=== PATIENT | female | born 1960 | race African-American/Black ===

== ENCOUNTER → 2017-01-19 | Outpatient (CLI) | payer OTHER ==
[2017-01-19 08:53] LABS: CHOLESTEROL 254.01 mg/dL (0-200); Direct HDL 57 mg/dL (>40); TRIGLYCERIDES 66 mg/dL (<150)
[2017-01-19 09:03] LABS: DIRECT LDL 177 mg/dL (<100)
== END ==
LOC: CCC 08:15
DX: E11.9 Type 2 diabetes mellitus without complications (principal); I10 Essential (primary) hypertension; E78.2 Mixed hyperlipidemia
CPT/HCPCS: 36415; 80061; 83036; 84443

== ENCOUNTER 2017-02-09 12:02 | Emergency (ER) | payer OTHER ==
[2017-02-09] MEDS ORDERED: ASPIRIN 81 MG TABLET, CHEWABLE PO ONE (12:10)
--- NOTE | 2017-02-09 12:28 | ER Document Report ---
ED Medical Screen (RME) - General Stated Complaint: CHEST PAIN Notes: Patient states chest pain started yesterday. Her asthma flared up last night. Patient has a history of A. fib. She reports shortness of breath, dizziness, and lightheadedness. Denies nausea or vomiting. Patient took (4) 81 mg aspirin at home this morning. I have greeted and performed a rapid initial assessment of this patient. A comprehensive ED assessment and evaluation of the patient, analysis of test results and completion of the medical decision making process will be conducted by additional ED providers. TRAVEL OUTSIDE OF THE [place] IN LAST 30 DAYS: No - Related Data Allergies/Adverse Reactions: nitrofurantoin [From Macrobid] Allergy (Verified 07/11/15 22:26) increase heart rate nitrofurantoin macrocrystalline [From Macrobid] Allergy (Verified 07/11/15 22:26 ) increase heart rate Penicillins Allergy (Verified 07/11/15 22:26) rash theophylline [Theophylline] Allergy (Verified 07/11/15 22:26) increase heart rate justin Allergy (Severe, Uncoded 07/11/15 22:26) black mouth Past Medical History - Past Medical History Cardiac Medical History: Denies: Hx Coronary Artery Disease, Hx Heart Attack, Hx Hypertension Pulmonary Medical History: Reports: Hx Asthma - on inhalers Denies: Hx Bronchitis, Hx COPD, Hx Pneumonia, Hx Tuberculosis Neurological Medical History: Denies: Hx Cerebrovascular Accident, Hx Seizures Musculoskeltal Medical History: Reports Hx Arthritis - lbp Past Surgical History: Reports: Hx Section, Hx Gynecologic Surgery - endometreosis, Hx Tubal Ligation - Immunizations Immunizations up to date: No Hx Diphtheria, Pertussis, Tetanus Vaccination: Yes Physical Exam - Vital signs Vitals: Temp Pulse Resp BP Pulse Ox 98.4 F 57 L 24 H 149/85 H 97 02/09/17 12:02/09/17 12:02/09/17 12:02/09/17 12:02/09/17 12:17 - Cardiovascular Rhythm: Regular, Bradycardia Heart sounds: Normal auscultation Course - Vital Signs Vital signs: Temp Pulse Resp BP Pulse Ox 98.4 F 57 L 24 H 149/85 H 97 02/09/17 12:02/09/17 12:02/09/17 12:02/09/17 12:17 02/09/17 12:17
[2017-02-09 13:02] LABS: ABSOLUTE LYMPHOCYTES (AUTO) 2.5 10^3/uL (0.5-4.7); ABSOLUTE MONOCYTES (AUTO) 0.4 10^3/uL (0.1-1.4); ABSOLUTE NEUT (AUTO) 2.8 10^3/uL (1.7-8.2); BASOPHILS % (AUTO) 0.4 % (0-2); EOSINOPHILS % (AUTO) 0.6 % (0-6); HEMATOCRIT 37.1 % (36.0-47.0); HEMOGLOBIN 12.2 g/dL (12.0-15.5); HGB HCT DIFFERENCE -0.5; LYMPHOCYTES % (AUTO) 42.7 % (13-45); MEAN CORPUSCULAR HEMOGLOBIN 25.3 pg (27.0-33.4); MEAN CORPUSCULAR HGB CONC 32.9 g/dL (32.0-36.0); MEAN CORPUSCULAR VOLUME 77 fl (80-97); MONOCYTES % (AUTO) 7.8 % (3-13); RED BLOOD COUNT 4.82 10^6/uL (3.72-5.28); RED CELL DISTRIBUTION WIDTH 15.7 % (11.5-14.0); SEGMENTED NEUTROPHILS % (AUTO) 48.5 % (42-78); WHITE BLOOD COUNT 5.8 10^3/uL (4.0-10.5)
[2017-02-09 13:26] LABS: ALANINE AMINOTRANSFERASE 45 U/L (9-52); ALBUMIN 3.7 g/dL (3.5-5.0); ALKALINE PHOSPHATASE 76 U/L (38-126); ANION GAP 11 (5-19); ASPARTATE AMINO TRANSFERASE 38 U/L (14-36); BILIRUBIN,DIRECT 0.2 mg/dL (0.0-0.4); BILIRUBIN,TOTAL 0.3 mg/dL (0.2-1.3); BLOOD UREA NITROGEN 8 mg/dL (7-20); CALCIUM 9.3 mg/dL (8.4-10.2); CARBON DIOXIDE 27 mmol/L (22-30); CHLORIDE 105 mmol/L (98-107); CREATINE KINASE 144 U/L (30-135); CREATININE RESULT 0.67 mg/dL (0.52-1.25); GLUCOSE 128 mg/dL (75-110); POTASSIUM 4.1 mmol/L (3.6-5.0); SODIUM 143.1 mmol/L (137-145); TOTAL PROTEIN 6.2 g/dL (6.3-8.2)
[2017-02-09 13:33] LABS: CREATINE KINASE MB 2.47 ng/mL (<4.55)
[2017-02-09 13:35] LABS: TROPONIN I < 0.012 ng/mL
[2017-02-09] MEDS ORDERED: MECLIZINE HCL 25 MG TABLET PO ONE (19:28)
[2017-02-09] MEDS ORDERED: CLONIDINE HCL 0.1 MG TABLET PO ONE (19:28)
--- NOTE | 2017-02-09 19:31 | ER Document Report ---
ED General - General Chief Complaint: Chest Pain Stated Complaint: CHEST PAIN Time seen by provider: 19:29 Mode of Arrival: Ambulatory Information source: Patient TRAVEL OUTSIDE OF THE [place] IN LAST 30 DAYS: No - HPI Patient complains to provider of: dizziness, chest pain, difficulty breathing Onset: Yesterday Onset/Duration: Gradual Quality of pain: Achy Severity: Mild Pain Level: 1 Associated symptoms: Chest pain, Shortness of breath Exacerbated by: Movement Relieved by: Denies Notes: Patient is a 56-year-old female who presents to the emergency room complaining of dizziness and lightheadedness with chest pain that started yesterday, states the dizziness is the sensation of the room spinning, it is worsened with change of position going from sitting to standing, she reports a slight ache or mild pressure in her chest and reports today she had an asthma attack which caused her to have difficulty breathing, she denies any fever, no cough, cold or congestion, no nausea, vomiting or diarrhea - Related Data Allergies/Adverse Reactions: nitrofurantoin [From Macrobid] Allergy (Verified 07/11/15 22:26) increase heart rate nitrofurantoin macrocrystalline [From Macrobid] Allergy (Verified 07/11/15 22:26 ) increase heart rate Penicillins Allergy (Verified 07/11/15 22:26) rash theophylline [Theophylline] Allergy (Verified 07/11/15 22:26) increase heart rate justin Allergy (Severe, Uncoded 07/11/15 22:26) black mouth Past Medical History - General Information source: Patient - Social History Smoking Status: Unknown if Ever Smoked Chew tobacco use (# tins/day): No Frequency of alcohol use: None Drug Abuse: None Family History: CAD Patient has suicidal ideation: No Patient has homicidal ideation: No - Past Medical History Cardiac Medical History: Denies: Hx Coronary Artery Disease, Hx Heart Attack, Hx Hypertension Pulmonary Medical History: Reports: Hx Asthma - on inhalers Denies: Hx Bronchitis, Hx COPD, Hx Pneumonia, Hx Tuberculosis Neurological Medical History: Denies: Hx Cerebrovascular Accident, Hx Seizures Renal/ Medical History: Denies: Hx Peritoneal Dialysis Musculoskeltal Medical History: Reports Hx Arthritis - lbp Past Surgical History: Reports: Hx Section, Hx Gynecologic Surgery - endometreosis, Hx Tubal Ligation - Immunizations Immunizations up to date: No Hx Diphtheria, Pertussis, Tetanus Vaccination: Yes Hx Pneumococcal Vaccination: 05/16/14 Review of Systems - Review of Systems Constitutional: No symptoms reported EENT: No symptoms reported Cardiovascular: See HPI Respiratory: See HPI Gastrointestinal: No symptoms reported Genitourinary: No symptoms reported Female Genitourinary: No symptoms reported Musculoskeletal: No symptoms reported Skin: No symptoms reported Hematologic/Lymphatic: No symptoms reported Neurological/Psychological: No symptoms reported -: Yes All other systems reviewed and negative Physical Exam - Vital signs Vitals: Temp Pulse Resp BP Pulse Ox 98.4 F 57 L 24 H 149/85 H 97 02/09/17 12:17 02/09/17 12:17 02/09/17 12:17 02/09/17 12:17 02/09/17 12:17 Interpretation: Normal - General General appearance: Appears well, Alert - HEENT Head: Normocephalic, Atraumatic Eyes: Normal Pupils: PERRL - Respiratory Respiratory status: No respiratory distress Chest status: Nontender Breath sounds: Normal Chest palpation: Normal - Cardiovascular Rhythm: Regular Heart sounds: Normal auscultation Murmur: Yes Systolic murmur grade 1-6: 3 - Abdominal Inspection: Normal Distension: No distension Bowel sounds: Normal Tenderness: Nontender Organomegaly: No organomegaly - Back Back: Normal, Nontender - Extremities General upper extremity: Normal inspection, Nontender, Normal color, Normal ROM , Normal temperature General lower extremity: Normal inspection, Nontender, Normal color, Normal ROM , Normal temperature, Normal weight bearing. No: Mau's sign - Neurological Neuro grossly intact: Yes Cognition: Normal Orientation: AAOx4 Enoch Coma Scale Eye Opening: Spontaneous [place] Coma Scale Verbal: Oriented [place] Coma Scale Motor: Obeys Commands [place] Coma Scale Total: 15 Speech: Normal Motor strength normal: LUE, RUE, LLE, RLE Sensory: Normal - Psychological Associated symptoms: Normal affect, Normal mood - Skin Skin Temperature: Warm Skin Moisture: Dry Skin Color: Normal Course - Re-evaluation Re-evalutation: 02/09/17 20:28 Patient resting comfortably, eating peanut butter and crackers, reports symptoms are resolved, she will be discharged with a prescription for meclizine and advised to follow-up with her primary care provider in the next 2-3 days or return if symptoms worsen, patient acknowledges understanding and agreement with this plan - Vital Signs Vital signs: Temp Pulse Resp BP Pulse Ox 98.4 F 57 L 24 H 164/95 H 100 02/09/17 12:17 02/09/17 12:17 02/09/17 12:17 02/09/17 19:31 02/09/17 19:31 - Laboratory Result Diagrams: 02/09/17 12:30 02/09/17 12:30 Laboratory results interpreted by me: 02/09/17 02/09/17 12:30 12:30 MCV 77 L MCH 25.3 L RDW 15.7 H Glucose 128 H AST 38 H Creatine Kinase 144 H Total Protein 6.2 L - Diagnostic Test Radiology reviewed: Image reviewed, Reports reviewed - EKG Interpretation by Me EKG shows normal: Sinus rhythm Rate: Bradycardia Discharge - Discharge Clinical Impression: Vertigo Chest pain Qualifiers: Chest pain type: unspecified Qualified Code(s): R07.9 - Chest pain, unspecified Condition: Stable Disposition: HOME, SELF-CARE Instructions: Chest Pain of Unclear Cause ([facility]), Vertigo ([facility]) Additional Instructions: Follow up with your primary care provider in one to 2 days. Return to the emergency room immediately if symptoms worsen or any additional concerns. Prescriptions: Meclizine HCl [Antivert 25 mg Tablet] 25 mg PO TID #20 tablet
--- NOTE | 2017-02-09 20:22 | EKG REPORT ---
SEVERITY:- ABNORMAL ECG - SINUS RHYTHM AINSLEY, CONSIDER BIATRIAL ABNORMALITIES : Confirmed by: Thompson Perry 09-Feb-2017 20:21:42
[2017-02-09 20:38] VITALS: BP 124/88
== END 2017-02-09 20:41 | disposition home or self-care (01) ==
LOC: ER 12:02
DX: R42 Dizziness and giddiness (principal); R07.9 Chest pain, unspecified
CPT/HCPCS: 36415; 71010; 80053; 82550; 82553; 84484; 85025; 93005; 93010; 99285

== ENCOUNTER 2017-02-10 11:19 | Emergency (ER) | payer OTHER ==
[2017-02-10] MEDS ORDERED: ADENOSINE INJ/PF 6 MG/2 ML SDV IV ONE (11:34)
--- NOTE | 2017-02-10 12:03 | ER Document Report ---
ED General - General Stated Complaint: CHEST PAIN Mode of Arrival: Ambulatory Information source: Patient Notes: 56-year-old female who was seen yesterday for chest pain presents with continued chest pain, sob and now heart racing. pt notes she has had heart racing in the past, has had to do vagal manuevers and take medications before. denies any fevers or chills, nausea or vomiting TRAVEL OUTSIDE OF THE [place] IN LAST 30 DAYS: No - HPI Onset: Just prior to arrival Onset/Duration: Sudden Quality of pain: No pain Severity: Mild Pain Level: 1 Associated symptoms: Chest pain Exacerbated by: Denies Relieved by: Denies Similar symptoms previously: Yes Recently seen / treated by doctor: Yes - Related Data Allergies/Adverse Reactions: nitrofurantoin [From Macrobid] Allergy (Verified 07/11/15 22:26) increase heart rate nitrofurantoin macrocrystalline [From Macrobid] Allergy (Verified 07/11/15 22:26 ) increase heart rate Penicillins Allergy (Verified 07/11/15 22:26) rash theophylline [Theophylline] Allergy (Verified 07/11/15 22:26) increase heart rate justin Allergy (Severe, Uncoded 07/11/15 22:26) black mouth Past Medical History - Social History Smoking Status: Never Smoker Cigarette use (# per day): No Chew tobacco use (# tins/day): No Smoking Education Provided: No Family History: CAD - Past Medical History Cardiac Medical History: Denies: Hx Coronary Artery Disease, Hx Heart Attack, Hx Hypertension Pulmonary Medical History: Reports: Hx Asthma - on inhalers Denies: Hx Bronchitis, Hx COPD, Hx Pneumonia, Hx Tuberculosis Neurological Medical History: Denies: Hx Cerebrovascular Accident, Hx Seizures Renal/ Medical History: Denies: Hx Peritoneal Dialysis Musculoskeltal Medical History: Reports Hx Arthritis - lbp Past Surgical History: Reports: Hx Section, Hx Gynecologic Surgery - endometreosis, Hx Tubal Ligation - Immunizations Immunizations up to date: No Hx Diphtheria, Pertussis, Tetanus Vaccination: Yes Hx Pneumococcal Vaccination: 05/16/14 Review of Systems - Review of Systems Notes: REVIEW OF SYSTEMS: CONSTITUTIONAL : Denies fever, chills, or sweats. Denies recent illness. EENT: Denies eye, ear, throat, or mouth pain or symptoms. Denies nasal or sinus congestion or discharge. Denies throat, tongue, or mouth swelling or difficulty swallowing. CARDIOVASCULAR: Admits chest pain shortness breath or racing RESPIRATORY: Denies cough, cold, or chest congestion. Denies shortness of breath, difficulty breathing, or wheezing. GASTROINTESTINAL: Denies abdominal pain or distention. Denies nausea, vomiting , or diarrhea. Denies blood in vomitus, stools, or per rectum. Denies black, tarry stools. Denies constipation. GENITOURINARY: Denies difficulty urinating, painful urination, burning, frequency, blood in urine, or discharge. FEMALE GENITOURINARY: Denies vaginal bleeding, heavy or abnormal periods, irregular periods. Denies vaginal discharge or odor. MUSCULOSKELETAL: Denies back or neck pain or stiffness. Denies joint pain or swelling. SKIN: Denies rash, lesions or sores. HEMATOLOGIC : Denies easy bruising or bleeding. LYMPHATIC: Denies swollen, enlarged glands. NEUROLOGICAL: Denies confusion or altered mental status. Denies passing out or loss of consciousness. Denies dizziness or lightheadedness. Denies headache. Denies weakness or paralysis or loss of use of either side. Denies problems with gait or speech. Denies sensory loss, numbness, or tingling. Denies seizures. PSYCHIATRIC: Denies anxiety or stress. Denies depression, suicidal ideation, or homicidal ideation. ALL OTHER SYSTEMS REVIEWED AND NEGATIVE. Dictation was performed using [employer] voice recognition software PHYSICAL EXAMINATION: GENERAL: Well-appearing, well-nourished and in no acute distress. HEAD: Atraumatic, normocephalic. EYES: Pupils equal round and reactive to light, extraocular movements intact, conjunctiva are normal. ENT: Nares patent, oropharynx clear without exudates. Moist mucous membranes. NECK: Normal range of motion, supple without lymphadenopathy LUNGS: Breath sounds clear to auscultation bilaterally and equal. No wheezes rales or rhonchi. HEART: Patient in SVT ABDOMEN: Soft, nontender, nondistended abdomen. No guarding, no rebound. No masses appreciated. Female : deferred Musculoskeletal: Normal range of motion, no pitting or edema. No cyanosis. NEUROLOGICAL: Cranial nerves grossly intact. Normal speech, normal gait. Normal sensory, motor exams PSYCH: Normal mood, normal affect. SKIN: Warm, Dry, normal turgor, no rashes or lesions noted. Physical Exam - Vital signs Vitals: Temp Pulse Resp BP Pulse Ox 98.2 F 164 H 16 127/106 H 97 02/10/17 11:33 02/10/17 11:33 02/10/17 11:33 02/10/17 11:33 02/10/17 11:33 Course - Re-evaluation Re-evalutation: 02/10/17 11:50 vagal maneuver unsuccessful patient given adenosine with resolution 02/10/17 14:18 Patient has been watched in the emergency department she is been stable, wishes to go home. Patient given that she has had now 6 episodes throughout her lifetime do not expect any specific life-threatening issues Patient has had multiple sets of enzymes over the past 24 hours, I will discharge home at this time After performing a Medical Screening Examination, I estimate there is LOW risk for RUPTURED ESOPHAGUS, PNEUMOTHORAX, PULMONARY EMBOLISM, ACUTE CORONARY SYNDROME, OR THORACIC AORTIC DISSECTION, thus I consider the discharge disposition reasonable. The patient and I have discussed the diagnosis and risks , and we agree with discharging home with close follow-up. We also discussed returning to the Emergency Department immediately if new or worsening symptoms occur. We have discussed the symptoms which are most concerning (e.g., bloody sputum, worsening pain or shortness of breath) that necessitate immediate return. - Vital Signs Vital signs: Temp Pulse Resp BP Pulse Ox 98.2 F 164 H 23 H 107/87 H 100 02/10/17 11:33 02/10/17 11:33 02/10/17 13:02 02/10/17 13:01 02/10/17 13:02 - Laboratory Result Diagrams: 02/10/17 13:18 02/10/17 11:40 Laboratory results interpreted by me: 02/10/17 02/10/17 11:40 13:18 MCV 77 L MCH 25.3 L RDW 15.6 H Lymphocytes % 49.5 H Glucose 138 H Total Protein 6.2 L - Diagnostic Test Radiology reviewed: Image reviewed, Reports reviewed - EKG Interpretation by Me EKG shows normal: Sinus rhythm, [place], Intervals, QRS Complexes Critical Care Note - Critical Care Note Total time excluding time spent on procedures (mins): 32 Comments: 32 minutes of critical care time spent in direct contact evaluating and reevaluating the patient, treating symptoms, reviewing labs and studies and speaking with family and consultants excluding any procedures Discharge - Discharge Clinical Impression: SVT (supraventricular tachycardia) Condition: Stable Disposition: HOME, SELF-CARE Instructions: Paroxysmal Supraventricular Tachycardia ([facility]) Additional Instructions: You promised that you would see a bilingual patient support caseworker, return immediately if there are any other concerns Referrals: JAH YE MD [ACTIVE STAFF] - Follow up tomorrow
[2017-02-10 12:18] LABS: ALANINE AMINOTRANSFERASE 47 U/L (9-52); ALBUMIN 3.7 g/dL (3.5-5.0); ALKALINE PHOSPHATASE 86 U/L (38-126); ANION GAP 10 (5-19); ASPARTATE AMINO TRANSFERASE 32 U/L (14-36); BILIRUBIN,DIRECT 0.1 mg/dL (0.0-0.4); BILIRUBIN,TOTAL 0.4 mg/dL (0.2-1.3); BLOOD UREA NITROGEN 11 mg/dL (7-20); CALCIUM 9.6 mg/dL (8.4-10.2); CARBON DIOXIDE 29 mmol/L (22-30); CHLORIDE 105 mmol/L (98-107); CREATININE RESULT 0.85 mg/dL (0.52-1.25); GLUCOSE 138 mg/dL (75-110); LIPASE 246.3 U/L (23-300); SODIUM 143.7 mmol/L (137-145); TOTAL PROTEIN 6.2 g/dL (6.3-8.2)
[2017-02-10 12:31] LABS: CREATINE KINASE MB 1.68 ng/mL (<4.55); TROPONIN I < 0.012 ng/mL
[2017-02-10 13:28] LABS: ABSOLUTE LYMPHOCYTES (AUTO) 2.8 10^3/uL (0.5-4.7); ABSOLUTE MONOCYTES (AUTO) 0.4 10^3/uL (0.1-1.4); ABSOLUTE NEUT (AUTO) 2.4 10^3/uL (1.7-8.2); BASOPHILS % (AUTO) 0.5 % (0-2); EOSINOPHILS % (AUTO) 0.9 % (0-6); HEMATOCRIT 40.3 % (36.0-47.0); HEMOGLOBIN 13.3 g/dL (12.0-15.5); HGB HCT DIFFERENCE -0.4; LYMPHOCYTES % (AUTO) 49.5 % (13-45); MEAN CORPUSCULAR HEMOGLOBIN 25.3 pg (27.0-33.4); MEAN CORPUSCULAR VOLUME 77 fl (80-97); MONOCYTES % (AUTO) 6.8 % (3-13); RED BLOOD COUNT 5.27 10^6/uL (3.72-5.28); RED CELL DISTRIBUTION WIDTH 15.6 % (11.5-14.0); SEGMENTED NEUTROPHILS % (AUTO) 42.3 % (42-78); WHITE BLOOD COUNT 5.7 10^3/uL (4.0-10.5)
--- NOTE | 2017-02-10 14:42 | EKG REPORT ---
SEVERITY:- ABNORMAL ECG - SINUS RHYTHM LEFT ATRIAL ABNORMALITY : Confirmed by: Thompson Perry 10-Feb-2017 14:41:38
[2017-02-10 15:48] VITALS: BP 108/80
== END 2017-02-10 15:47 | disposition home or self-care (01) ==
LOC: ER 11:19
DX: I47.1 Supraventricular tachycardia (principal); R07.9 Chest pain, unspecified; Z88.1 Allergy status to other antibiotic agents; Z88.0 Allergy status to penicillin; Z91.013 Allergy to seafood; Z88.8 Allergy status to other drugs, medicaments and biological substances
CPT/HCPCS: 93005; 99291; 36415; 82553; 83690; 85025; 80053; 84484; 71020; 93010; J0153

== ENCOUNTER → 2017-03-25 | Outpatient (CLI) | payer OTHER ==
[2017-03-25 13:11] LABS: THYROID STIMULATING HORMONE 0.7 uIU/mL (0.47-4.68)
== END ==
LOC: CCC 11:49
DX: R00.0 Tachycardia, unspecified (principal); E11.9 Type 2 diabetes mellitus without complications
CPT/HCPCS: 36415; 83036; 84439; 84443

== ENCOUNTER 2017-04-08 07:06 | Outpatient (CLI) | payer OTHER ==
--- NOTE | 2017-04-08 20:03 | XCELERA REPORT ---
[address] [address] Transthoracic Echocardiogram Report Name: SHAHAB ESPINO Age: 56 yrs Gender: Female : 1960 Patient Status: Outpatient Patient Location: [facility] Study Date: 04/08/2017 07:51 AM Height: 65 in Weight: 202 lb BSA: 2.0 m2 Reason For Study: HTN Ordering Physician: [facility] Performed By: Edenilson Garces Interpretation Summary Asymmetric septal hypertrophy of LV with normal LVEF 65-70%, no LV diastolic dysfunction. No regional wall motion abnormality. Normal AV no no AR. Mild Mitral annular calcification. Mild MR with no MS, no LA enlargement. Mild TR with mild pulm hypertension RVSP 35mm Hg, no RA or RV enlargement. asymmetric septal hypertrophy 13mm PW 9.4mm MMode/2D Measurements \T\ Calculations RVDd: 2.7 cm LVIDd: 4.6 cm FS: 47.7 % Ao root diam: 2.9 cm IVSd: 1.1 cm LVIDs: 2.4 cm EDV(Teich): 99.1 ml LVPWd: 1.0 cm ESV(Teich): 20.6 ml Ao root area: 6.6 cm2 EF(Teich): 79.2 % LA dimension: 3.5 cm Doppler Measurements \T\ Calculations MV E max yonatan: MV P1/2t max yonatan: Ao V2 max: LV V1 max P.2 cm/sec 96.7 cm/sec 145.8 cm/sec 4.0 mmHg MV A max yonatan: MV P1/2t: 51.3 msec Ao max PG: LV V1 max: 83.9 cm/sec 8.5 mmHg 100.4 cm/sec MV E/A: 1.2 MVA(P1/2t): 4.3 cm2 MV dec slope: 552.1 cm/sec2 PA V2 max: PI end-d yonatan: TR max yonatan: RAP systole: 78.5 cm/sec 139.8 cm/sec 248.0 cm/sec 10.0 mmHg PA max PG: TR max P.5 mmHg 24.7 mmHg RVSP(TR): 34.7 mmHg Left Ventricle The left ventricle is normal in size. There is mild asymmetric left ventricular hypertrophy. The left ventricular ejection fraction is normal. Doppler measurements suggest normal left ventricular diastolic function. No regional wall motion abnormalities noted. There is no thrombus. Right Ventricle The right ventricle is normal in size, thickness and function. Atria Right atrium not well visualized secondary to technical limitations. The left atrial size is normal. The interatrial septum is intact with no evidence for an atrial septal defect. Mitral Valve The mitral valve is normal in structure and function. There is mild mitral leaflet calcification. There is no evidence of mitral valve prolapse. There is no mitral valve stenosis. There is a mild amount of mitral regurgitation. Aortic Valve The aortic valve is sclerotic and shows some degree of functional abnormality. The aortic valve opens well. The aortic valve is trileaflet. There is no aortic valvular vegetation. There is no aortic valve stenosis. No aortic regurgitation is present. Tricuspid Valve The tricuspid is normal in structure and function. There is no tricuspid valve prolapse. There is no tricuspid stenosis. There is a mild amount of tricuspid regurgitation. Right ventricular systolic pressure is estimated to be elevated at 30-40mmHg. Great Vessels The aortic root is normal size. Effusions Minimal pericardial effusion. I WMSI = 1.00 % Normal = 100 Segments Size X - Cannot 2 - 4 - 1-2 small Interpret 1 - Normal Hypokinetic 3 - AkineticDyskinetic 3-5 moderate 5 - 6-14 large Aneurysmal 15-16 diffuse : [facility] > [place]
--- NOTE | 2017-04-14 08:07 | NONINVASIVE CARDIOLOGY REPORT ---
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 REPORT The basic rhythm was sinus with heart rate ranging from 50 bpm at 4:29 am to 120 bpm at 10:05 pm. No diary returned for correlation with activity. PACs were rare, no more than five this entire 24 hours, with no paroxysmal atrial tachycardia or paroxysmal atrial fibrillation. PVCs were rare, ranging from zero to 13 per hour, no diary returned to see if patient was symptomatic or not. There was no nonsustained ventricular tachycardia. SUMMARY OR FINDINGS: 1. NO PAROXYSMAL OR VENTRICULAR TACHYCARDIA SEEN THIS ENTIRE 24 HOURS. 2. RARE PACs. 3. RARE PVCs. INTERPRETING PHYSICIAN: MIRIAM GRECO M.D. /: BILL TT: [id number] ID: [id number] /: [id number] TD: 1944 JOB: [id number] cc:MIRIAM GRECO M.D. [facility],
== END 2017-04-09 23:59 | disposition home or self-care (01) ==
LOC: CCC 07:06 → SP 07:06 → EDSTATUS 08:00 → CCC 04-09 14:22
DX: I47.1 Supraventricular tachycardia (principal); I10 Essential (primary) hypertension; E11.9 Type 2 diabetes mellitus without complications
CPT/HCPCS: 93225; 93226; 93306

== ENCOUNTER → 2017-05-26 | Outpatient (CLI) | payer OTHER ==
[2017-05-26 14:05] LABS: ANION GAP 10 (5-19); BLOOD UREA NITROGEN 11 mg/dL (7-20); CALCIUM 10.4 mg/dL (8.4-10.2); CARBON DIOXIDE 30 mmol/L (22-30); CHLORIDE 102 mmol/L (98-107); CREATININE RESULT 0.71 mg/dL (0.52-1.25); GLUCOSE 108 mg/dL (75-110); POTASSIUM 4.3 mmol/L (3.6-5.0); SODIUM 141.6 mmol/L (137-145)
== END ==
LOC: CCC 12:33
DX: E11.8 Type 2 diabetes mellitus with unspecified complications (principal)
CPT/HCPCS: 36415; 80048

== ENCOUNTER → 2017-06-10 | Outpatient (CLI) | payer OTHER ==
--- NOTE | 2017-06-10 11:50 | RADIOLOGY REPORT (SQ) ---
EXAM DESCRIPTION: MRI HEAD COMBO COMPLETED DATE/TIME: 06/10/2017 9:52 am REASON FOR STUDY: DECREASE IN MOTOR STRENGTH M62.81 MUSCLE WEAKNESS (GENERALIZED) R60.0 LOCALIZED EDEMA R26.89 OTHER ABNORMALITIES OF GAIT AND MOBILITY COMPARISON: None. TECHNIQUE: Multiplanar imaging includes noncontrasted T1, T2, FLAIR, diffusion with ADC map and post gadolinium contrast T1 sequences. Images stored on PACS. CONTRAST TYPE AND DOSE: 20 mL Multihance. RENAL FUNCTION: GFR > 60. LIMITATIONS: None. FINDINGS: ANATOMY: No anomalies. Normal vascular flow voids. Pituitary fossa normal. CSF SPACES: Normal in size and contour. No hemorrhage. CEREBRUM: Sulci and gyri normal in size and contour. No evidence of hemorrhage, mass, or extraaxial fluid collection. No abnormal enhancement post contrast. POSTERIOR FOSSA: No signal alteration. No hemorrhage. No edema, masses, or mass effect. Internal nieves tory canals, cerebellopontine angles, mastoids normal. No enhancing lesions. No abnormal enhancement post contrast. DIFFUSION IMAGING: Negative for acute or subacute infarction. ORBITS: No masses. Globes normal. PARANASAL SINUSES: No fluid levels. Mucosa normal. OTHER: No other significant finding. IMPRESSION: No acute abnormality in the brain. EVIDENCE OF ACUTE STROKE: NO. TECHNICAL DOCUMENTATION: JOB ID: [id number] [employer]- All Rights Reserved
== END ==
LOC: RAD 08:14
DX: M62.81 Muscle weakness (generalized) (principal); R60.0 Localized edema; R26.89 Other abnormalities of gait and mobility
CPT/HCPCS: 70553; A9577

== ENCOUNTER → 2017-07-13 | Outpatient (CLI) | payer OTHER ==
[2017-07-13 11:27] LABS: ANION GAP 9 (5-19); BLOOD UREA NITROGEN 10 mg/dL (7-20); CALCIUM 9.6 mg/dL (8.4-10.2); CARBON DIOXIDE 27 mmol/L (22-30); CHLORIDE 105 mmol/L (98-107); CREATININE RESULT 0.57 mg/dL (0.52-1.25); GLUCOSE 167 mg/dL (75-110); MAGNESIUM 1.9 mg/dL (1.6-2.3); PHOSPHORUS 3.4 mg/dL (2.5-4.5); SODIUM 141.1 mmol/L (137-145)
[2017-07-13 12:41] LABS: FOLATE > 20.00 ng/mL (>2.76)
== END ==
LOC: CCC 10:09
DX: I27.0 Primary pulmonary hypertension (principal); E83.52 Hypercalcemia
CPT/HCPCS: 36415; 80048; 82607; 82746; 83036; 83735; 84100

== ENCOUNTER 2017-11-25 09:26 | Emergency (ER) | payer MEDICAID ==
[2017-11-25 10:17] LABS: ABSOLUTE BASOPHILS # (AUTO) 0.1 10^3/uL (0.0-0.2); ABSOLUTE EOSINOPHILS # (AUTO) 0.1 10^3/uL (0.0-0.6); ABSOLUTE LYMPHOCYTES (AUTO) 3.8 10^3/uL (0.5-4.7); ABSOLUTE MONOCYTES (AUTO) 0.5 10^3/uL (0.1-1.4); ABSOLUTE NEUT (AUTO) 2.3 10^3/uL (1.7-8.2); BASOPHILS % (AUTO) 0.8 % (0-2); EOSINOPHILS % (AUTO) 1.3 % (0-6); HEMATOCRIT 40.2 % (36.0-47.0); HEMOGLOBIN 13.5 g/dL (12.0-15.5); LYMPHOCYTES % (AUTO) 56.3 % (13-45); MEAN CORPUSCULAR HEMOGLOBIN 25.7 pg (27.0-33.4); MEAN CORPUSCULAR HGB CONC 33.5 g/dL (32.0-36.0); MEAN CORPUSCULAR VOLUME 77 fl (80-97); MONOCYTES % (AUTO) 7.9 % (3-13); PLATELET COUNT 443 10^3/uL (150-450); RED BLOOD COUNT 5.25 10^6/uL (3.72-5.28); RED CELL DISTRIBUTION WIDTH 15.3 % (11.5-14.0); SEGMENTED NEUTROPHILS % (AUTO) 33.7 % (42-78); TOTAL CELLS COUNTED % (AUTO) 100 %; WHITE BLOOD COUNT 6.8 10^3/uL (4.0-10.5)
--- NOTE | 2017-11-25 10:17 | ER Document Report ---
ED Cardiac - General Chief Complaint: Chest Pain Stated Complaint: CHEST PAIN Time Seen by Provider: 11/25/17 10:06 Notes: The patient is a 57-year-old female, past medical history SVT (on atenolol), hypertension, presents after she felt her heart racing for about 30 minutes. As the patient was being rolled from the EKG room to her room, she felt her heart start racing. In the past, she has required adenosine to break her SVT. On my evaluation, the patient is in normal sinus rhythm with a rate of 60. She is feeling mild chest pressure during the SVT, but this has resolved. She has an appointment with her javascript programmer in [place], Dr. Wolfe, and 4 days. She did not take her atenolol this morning. She denies shortness of breath, syncope , leg swelling, hemoptysis, fevers, cough, nausea, vomiting, abdominal pain or back pain. TRAVEL OUTSIDE OF THE [place] IN LAST 30 DAYS: No - Related Data Allergies/Adverse Reactions: nitrofurantoin [From Macrobid] Allergy (Verified 11/25/17 09:26) increase heart rate nitrofurantoin macrocrystalline [From Macrobid] Allergy (Verified 11/25/17 09:26 ) increase heart rate Penicillins Allergy (Verified 11/25/17 09:26) rash theophylline [Theophylline] Allergy (Verified 11/25/17 09:26) increase heart rate justin Allergy (Severe, Uncoded 11/25/17 09:26) black mouth Past Medical History - General Information source: Patient - Social History Smoking Status: Unknown if Ever Smoked Family History: CAD - Past Medical History Cardiac Medical History: Denies: Hx Coronary Artery Disease, Hx Heart Attack, Hx Hypertension Pulmonary Medical History: Reports: Hx Asthma - on inhalers Denies: Hx Bronchitis, Hx COPD, Hx Pneumonia, Hx Tuberculosis Neurological Medical History: Denies: Hx Cerebrovascular Accident, Hx Seizures Renal/ Medical History: Denies: Hx Peritoneal Dialysis Musculoskeltal Medical History: Reports Hx Arthritis - lbp Past Surgical History: Reports: Hx Section, Hx Gynecologic Surgery - endometreosis, Hx Tubal Ligation - Immunizations Immunizations up to date: No Hx Diphtheria, Pertussis, Tetanus Vaccination: Yes Hx Pneumococcal Vaccination: 05/16/14 Review of Systems - Review of Systems Notes: REVIEW OF SYSTEMS: CONSTITUTIONAL: -fevers, -chills EENT: -eye pain, -difficulty swallowing, -nasal congestion CARDIOVASCULAR: -chest pain, -syncope, +palpitations RESPIRATORY: -cough, -SOB GASTROINTESTINAL: -abdominal pain, -nausea, -vomiting, -diarrhea GENITOURINARY: -dysuria, -hematuria MUSCULOSKELETAL: -back pain, -neck pain SKIN: -rash or skin lesions. HEMATOLOGIC: -easy bruising or bleeding. LYMPHATIC: -swollen, enlarged glands. NEUROLOGICAL: -altered mental status or loss of consciousness, -headache, - neurologic symptoms PSYCHIATRIC: -anxiety, -depression. ALL OTHER SYSTEMS REVIEWED AND NEGATIVE. Physical Exam - Vital signs Vitals: Temp 97.8 F 11/25/17 09:46 - Notes Notes: PHYSICAL EXAMINATION: GENERAL: Well-appearing, well-nourished and in no acute distress. HEAD: Atraumatic, normocephalic. EYES: Pupils equal round and reactive to light, extraocular movements intact, sclera anicteric, conjunctiva are normal. ENT: nares patent, oropharynx clear without exudates. Moist mucous membranes. NECK: Normal range of motion, supple without lymphadenopathy LUNGS: Breath sounds clear to auscultation bilaterally and equal. No wheezes rales or rhonchi. HEART: Regular rate and rhythm without murmurs ABDOMEN: Soft, nontender, normoactive bowel sounds. No guarding, no rebound. No masses appreciated. EXTREMITIES: Normal range of motion, no pitting or edema. No cyanosis. NEUROLOGICAL: Cranial nerves grossly intact. Normal speech, normal gait. Normal sensory and motor exams. PSYCH: Normal mood, normal affect. SKIN: Warm, Dry, normal turgor, no rashes or lesions noted. Course - Re-evaluation Re-evalutation: Patient's SVT spontaneously converted while she was trying vagal maneuvers on the way back to her room. Pt cannot remember her atenolol dose, but says she will take it right when she gets home. She has an appointment with her javascript programmer in 4 days. Blood work is unremarkable and instructed her to follow -up with the javascript programmer as already instructed. Given very strict return precautions and she understands. - Vital Signs Vital signs: Temp Pulse Resp BP Pulse Ox 97.8 F 75 11/25/17 09:46 11/25/17 09:59 - Laboratory Result Diagrams: 11/25/17 09:40 11/25/17 09:40 Laboratory results interpreted by me: 11/25/17 11/25/17 09:40 09:40 MCV 77 L MCH 25.7 L RDW 15.3 H Seg Neutrophils % 33.7 L Lymphocytes % 56.3 H Glucose 251 H Calcium 10.4 H Alkaline Phosphatase 127 H - Diagnostic Test Radiology reviewed: Image reviewed, Reports reviewed - EKG Interpretation by Me EKG shows normal: [place] Rate: Tachycardia Rhythm: SVT Additional EKG results interpreted by me: 11/25/17 09:32 EKG #1: SVT 11/25/17 10:06 EKG #2: NSR @rate 60 Discharge - Discharge Clinical Impression: Paroxysmal SVT (supraventricular tachycardia) Condition: Stable Disposition: HOME, SELF-CARE Additional Instructions: Take your atenolol when you get home and follow-up with your javascript programmer as scheduled this week. Palpitations (Irregular/Rapid Heartrate) Irregular or rapid heartbeat is called "palpitation." To diagnose the cause of palpitation, we have to "catch it in the act" with an EKG. Sinus Tachycardia: This is a rapid (but NORMAL) rhythm that can be due to fever, pain, anxiety, lack of sleep, over-exertion, or drugs. Cold medications, caffeine, and diet pills are particularly likely to cause tachycardia. Usually , all that's required is rest, reassurance, and avoiding caffeine, alcohol, nicotine, and unnecessary medicines. Paroxysmal Atrial Tachycardia (PAT): This abnormally rapid heartbeat is caused by a "short circuit" in the electrical system of the heart. It is not dangerous, unless other heart disease is present. These attacks of PAT may occur occasionally for years. Medication is available for treatment. Paroxysmal Atrial Fibrillation or Atrial Flutter: This is irregular electrical activity in the upper heart chamber. These abnormal rhythms often occur with valve disease or in hearts damaged by hardening of the arteries. These rhythms usually require further testing, for example a cardiac echo. Premature Beats: Extra beats occur more commonly after caffeine, nicotine , alcohol, cold pills, diet pills. Emotional stress or fatigue also provoke them. Extra beats are only dangerous when heart disease is present. They usually need no treatment. If they're frequent, or if evidence of heart disease develops, medication can be given to suppress them. If we were unable to "catch" the palpitations on EKG, you should try to get an EKG immediately if the symptoms begin again. Contact the physician at once if you develop persistent lightheadedness, shortness of breath, chest pain , or swelling of the ankles. Referrals: THEODORE BECKMAN MD [Primary Care Provider] - Follow up as needed BEBE WOLFE MD [NO LOCAL MD] - Follow up as needed
[2017-11-25 10:29] LABS: ALANINE AMINOTRANSFERASE 42 U/L (9-52); ALBUMIN 4.5 g/dL (3.5-5.0); ALKALINE PHOSPHATASE 127 U/L (38-126); ANION GAP 15 (5-19); ASPARTATE AMINO TRANSFERASE 31 U/L (14-36); BILIRUBIN,DIRECT 0.3 mg/dL (0.0-0.4); BILIRUBIN,TOTAL 0.7 mg/dL (0.2-1.3); BLOOD UREA NITROGEN 11 mg/dL (7-20); CALCIUM 10.4 mg/dL (8.4-10.2); CARBON DIOXIDE 27 mmol/L (22-30); CHLORIDE 99 mmol/L (98-107); GLUCOSE 251 mg/dL (75-110); MAGNESIUM 1.8 mg/dL (1.6-2.3); POTASSIUM 3.9 mmol/L (3.6-5.0); TOTAL PROTEIN 7.5 g/dL (6.3-8.2)
--- NOTE | 2017-11-25 10:59 | RADIOLOGY REPORT (SQ) ---
EXAM DESCRIPTION: CHEST SINGLE VIEW COMPLETED DATE/TIME: 11/25/2017 10:29 am REASON FOR STUDY: chest pain COMPARISON: Chest films 02/04/2016, 06/09/2016, 02/09/2017, 02/10/2017 EXAM PARAMETERS: NUMBER OF VIEWS: One view. TECHNIQUE: Single frontal radiographic view of the chest acquired. RADIATION DOSE: NA LIMITATIONS: None. FINDINGS: LUNGS AND PLEURA: No opacities, masses or pneumothorax. No pleural effusion. MEDIASTINUM AND HILAR STRUCTURES: No masses. Contour normal. HEART AND VASCULAR STRUCTURES: Heart normal in size. Normal vasculature. BONES: No acute findings. HARDWARE: None in the chest. OTHER: No other significant finding. IMPRESSION: NO ACUTE RADIOGRAPHIC FINDING IN THE CHEST. TECHNICAL DOCUMENTATION: JOB ID: [id number] [employer]- All Rights Reserved
--- NOTE | 2017-11-25 18:44 | EKG REPORT ---
SEVERITY:- BORDERLINE ECG - SINUS RHYTHM PROBABLE LEFT ATRIAL ABNORMALITY BORDERLINE T ABNORMALITIES, ANTERIOR LEADS : Confirmed by: Po Mark MD 25-Nov-2017 18:44:12
--- NOTE | 2017-11-25 18:45 | EKG REPORT ---
SEVERITY:- BORDERLINE ECG - SUPRAVENTRICULAR TACHYCARDIA LEFT AXIS DEVIATION BORDERLINE ST DEPRESSION, DIFFUSE LEADS : Confirmed by: Po Mark MD 25-Nov-2017 18:45:29
== END 2017-11-25 11:45 | disposition home or self-care (01) ==
LOC: ER 09:26
DX: I47.1 Supraventricular tachycardia (principal); Z79.899 Other long term (current) drug therapy; R07.89 Other chest pain; I10 Essential (primary) hypertension; Z88.1 Allergy status to other antibiotic agents; Z88.0 Allergy status to penicillin; Z91.018 Allergy to other foods; Z88.8 Allergy status to other drugs, medicaments and biological substances; J45.909 Unspecified asthma, uncomplicated
CPT/HCPCS: 36415; 71045; 80053; 83735; 84484; 85025; 93005; 93010; 99285

== ENCOUNTER 2018-01-21 05:19 | Day surgery (SDC) | payer MEDICAID ==
[2018-01-19 12:07] LABS: APPEARANCE,URINE CLEAR; BILIRUBIN,URINE NEGATIVE (NEGATIVE); COLOR,URINE YELLOW; GLUCOSE, URINE NEGATIVE (NEGATIVE); KETONES,URINE NEGATIVE (NEGATIVE); LEUKOCYTE ESTERASE,URINE NEGATIVE (NEGATIVE); NITRITE,URINE NEGATIVE (NEGATIVE); PROTEIN,URINE NEGATIVE (NEGATIVE); URINE SPECIFIC GRAVITY 1.027; UROBILINOGEN,URINE NEGATIVE mg/dL (<2.0)
[2018-01-19 12:16] LABS: HEMATOCRIT 36.5 % (36.0-47.0); HEMOGLOBIN 12.2 g/dL (12.0-15.5); MEAN CORPUSCULAR HEMOGLOBIN 25.7 pg (27.0-33.4); MEAN CORPUSCULAR HGB CONC 33.5 g/dL (32.0-36.0); MEAN CORPUSCULAR VOLUME 77 fl (80-97); PLATELET COUNT 312 10^3/uL (150-450); RED BLOOD COUNT 4.76 10^6/uL (3.72-5.28); RED CELL DISTRIBUTION WIDTH 14.4 % (11.5-14.0); WHITE BLOOD COUNT 10.4 10^3/uL (4.0-10.5)
[2018-01-19 12:32] LABS: ANION GAP 15 (5-19); BLOOD UREA NITROGEN 15 mg/dL (7-20); CARBON DIOXIDE 25 mmol/L (22-30); CHLORIDE 104 mmol/L (98-107); GLUCOSE 164 mg/dL (75-110); POTASSIUM 4.3 mmol/L (3.6-5.0); SODIUM 143.7 mmol/L (137-145)
--- NOTE | 2018-01-19 13:35 | RADIOLOGY REPORT (SQ) ---
EXAM DESCRIPTION: CHEST PA/LATERAL COMPLETED DATE/TIME: 01/19/2018 11:28 am REASON FOR STUDY: PRE OP COMPARISON: 11/25/2017. EXAM PARAMETERS: NUMBER OF VIEWS: two views TECHNIQUE: Digital Frontal and Lateral radiographic views of the chest acquired. RADIATION DOSE: NA LIMITATIONS: none FINDINGS: LUNGS AND PLEURA: No opacities, masses or pneumothorax. No pleural effusion. MEDIASTINUM AND HILAR STRUCTURES: No masses or contour abnormalities. HEART AND VASCULAR STRUCTURES: Heart normal size. No evidence for failure. BONES: No acute findings. HARDWARE: None in the chest. OTHER: No other significant finding. IMPRESSION: NO SIGNIFICANT RADIOGRAPHIC FINDING IN THE CHEST. TECHNICAL DOCUMENTATION: JOB ID: [id number] [employer]- All Rights Reserved Reading location - IP/workstation name: [email or web address]
--- NOTE | 2018-01-19 22:08 | EKG REPORT ---
SEVERITY:- BORDERLINE ECG - SINUS BRADYCARDIA PROBABLE LEFT ATRIAL ABNORMALITY : Confirmed by: Thompson Perry 19-Jan-2018 22:08:13
[~2018-01-21 05:19] MED LIST: LACTATED RINGERS 1000 ML IV PRN
[2018-01-21] MEDS ORDERED: FENTANYL CITRATE INJ/PF 100 MCG/2 ML AMPUL ONE (06:53)
[2018-01-21] MEDS ORDERED: MIDAZOLAM 2 MG/2 ML INJ ONE (06:53)
[2018-01-21] MEDS ORDERED: LIDOCAINE 2% INJ-PF (20 MG/ML) 10 ML AMPUL ONE (06:53)
[2018-01-21] MEDS ORDERED: PROPOFOL INJ 200 MG/20 ML VIAL IV ONE (06:53)
[2018-01-21] MEDS ORDERED: OXYCODONE-ACETAMINOPHEN 5-325 MG TABLET PO PRN ×3 (07:28→08:30)
[2018-01-21] MEDS ORDERED: MEPERIDINE HCL/PF INJ 25 MG/1 ML DISP.SYRIN IV PRN (07:28)
[2018-01-21] MEDS ORDERED: DIPHENHYDRAMINE HCL 50 MG/ML VIAL IV PRN (07:28)
[2018-01-21] MEDS ORDERED: PROMETHAZINE HCL INJ 25 MG/1 ML VIAL IV PRN ×2 (07:28)
[2018-01-21] MEDS ORDERED: MORPHINE SULFATE 10 MG/ML INJ IV PRN (07:28)
[2018-01-21] MEDS ORDERED: FENTANYL CITRATE INJ/PF 100 MCG/2 ML AMPUL IV PRN ×3 (07:28)
[2018-01-21] MEDS ORDERED: ONDANSETRON HCL INJ/PF 4 MG/2 ML SDV IV PRN (07:28)
[2018-01-21] MEDS ORDERED: PROMETHAZINE HCL INJ 25 MG/1 ML VIAL IM PRN (08:30)
--- NOTE | 2018-01-21 09:23 | OPERATIVE REPORT E ---
Operative Report NAME: SHAHAB ESPINO : 1960 AGE: 57Y DATE OF SURGERY: January 21, 2018 ROOM: PREOPERATIVE DIAGNOSIS: Postmenopausal bleeding. POSTOPERATIVE DIAGNOSIS: 1. Postmenopausal bleeding. 2. Endometrial polyp. OPERATION: Hysteroscopy with polypectomy. SURGEON: ROBERTA MATTHEW M.D. COMPLICATIONS: None. ANESTHESIA: LMA. FINDINGS: A small posterior endometrial polyp, benign-appearing. Normal endometrial cavity. Normal cervix. PROCEDURE: The patient was taken to the operating room and placed in a modified lithotomy position. After adequate was ascertained, she was prepped and draped for a hysteroscopy. A stenotic cervix was encountered. This was slowly and methodically dilated with lacrimal duct dilators up to allowing a hysteroscope. The hysteroscope was inserted. The above-noted findings were appreciated. Curettage followed, productive of a small amount of tissue. Repeat hysteroscopy demonstrated an empty uterus. Specimen sent to Pathology. Patient awakened and taken to the recovery room in stable condition *------*. DICTATING PHYSICIAN: ROBERTA MATTHEW M.D. [id number] PHY#: [id number] ID: [id number] JOB#: [id number] ACCT: [id number] cc:ROBERTA MATTHEW M.D. >
[2018-01-21 10:08] VITALS: BP 130/79
[2018-01-21] MEDS ORDERED: IBUPROFEN 800 MG TABLET PO SCH (14:00)
== END 2018-01-21 09:55 | disposition home or self-care (01) ==
LOC: OROUT 05:19
PROVIDERS: ATTEND Specialist
PROC: 0UB98ZX Excision of Uterus, Via Natural or Artificial Opening Endoscopic, Diagnostic (ICD-10-PCS; principal; 2018-01-21 07:15)
DX: N95.0 Postmenopausal bleeding (principal); N84.0 Polyp of corpus uteri; I10 Essential (primary) hypertension; G47.30 Sleep apnea, unspecified; E78.00 Pure hypercholesterolemia, unspecified; Z88.1 Allergy status to other antibiotic agents; Z88.0 Allergy status to penicillin; Z88.8 Allergy status to other drugs, medicaments and biological substances; Z87.440 Personal history of urinary (tract) infections
CPT/HCPCS: 36415; 71046; 80048; 81001; 85027; 86850; 86900; 86901; 88305; 93005; 93010; 952; J2250; J2704; J3010; J3490

== ENCOUNTER → 2018-03-30 | Outpatient (CLI) | payer MEDICAID ==
--- NOTE | 2018-03-30 09:33 | RADIOLOGY REPORT (SQ) ---
EXAM DESCRIPTION: MRI LUMBAR SPINE WITHOUT COMPLETED DATE/TIME: 03/30/2018 9:15 am REASON FOR STUDY: M54.16 RADICULOPATHY, LUMBAR REGION M54.16 RADICULOPATHY, LUMBAR REGION COMPARISON: None. TECHNIQUE: Sagittal and Axial imaging includes T1, T2, STIR and gradient echo sequences. Coronal T2/ HASTE imaging. LIMITATIONS: None. FINDINGS: VISUALIZED UPPER ABDOMEN: Limited evaluation. No acute or suspicious findings suggested. SEGMENTATION: No transitional anatomy. The lowest well-developed disc space is labeled L5-S1. ALIGNMENT: Anatomic. VERTEBRAE: Intact. BONE MARROW: Normal. No marrow replacement or reactive changes. DISC SIGNAL: Mild diminished disc signal and height at L2-3 and L3-4. POSTERIOR ELEMENTS: No pars defect. Mild facet arthropathy, multiple levels. HARDWARE: None in the spine. CORD AND CONUS: Normal in size and signal intensity. Conus at the appropriate level. SOFT TISSUES: No aortic aneurysm seen. No bulky retroperitoneal adenopathy or mass. No paraspinal mas s or fluid. L1-L2: No significant spinal stenosis or exit foraminal stenosis. L2-L3: No significant spinal stenosis or exit foraminal stenosis. L3-L4: No significant spinal stenosis or exit foraminal stenosis. L4-L5: No significant spinal stenosis or exit foraminal stenosis. L5-S1: No significant spinal stenosis or exit foraminal stenosis. LOWER THORACIC: Incompletely imaged. No stenosis seen. SACRUM: Visualized upper sacrum intact. OTHER: No other significant findings. IMPRESSION: Mild lumbar spondylosis without spinal stenosis. No spinal malalignment or significant disc hernias. TECHNICAL DOCUMENTATION: JOB ID: [id number]- All Rights Reserved Reading location - IP/workstation name: [email or web address]
== END ==
LOC: RAD 08:49
PROVIDERS: ATTEND Anesthesiology Pain Medicine
DX: M54.16 Radiculopathy, lumbar region (principal); M47.896 Other spondylosis, lumbar region
CPT/HCPCS: 72148

== ENCOUNTER 2018-08-05 07:56 | Emergency (ER) | payer MEDICARE, MEDICAID ==
--- NOTE | 2018-08-05 09:36 | ER Document Report ---
ED Cardiac - General Mode of Arrival: Ambulatory Information source: Patient TRAVEL OUTSIDE OF THE [place] IN LAST 30 DAYS: No <PRITESH KRUGER - Last Filed: 08/05/18 12:37> <SUDHA JACKSON - Last Filed: 08/05/18 14:29> - General Chief Complaint: Irregular Pulse Stated Complaint: FAST HEART RATE Time Seen by Provider: 08/05/18 09:27 Notes: 57-year-old female that presents to the emergency department today with complaints of a heart racing sensation that began this morning upon awakening at 0600. Patient's heart rate was in the 130s at home and after arrival here at 0800 the patient's heart rate was recorded at 127. Patient states she has had a problem with SVT off and on and was told she could take up to 3 atenolol to slow her heart rate down. Patient states she only took one today. Upon entry into the room the patient's heart rate was down into the upper 40s. Patient feels back to baseline now. (PRITESH KRUGER) - Related Data Allergies/Adverse Reactions: nitrofurantoin [From Macrobid] Allergy (Verified 08/05/18 07:56) increase heart rate nitrofurantoin macrocrystalline [From Macrobid] Allergy (Verified 08/05/18 07:56 ) increase heart rate Penicillins Allergy (Verified 08/05/18 07:56) rash theophylline [Theophylline] Allergy (Verified 08/05/18 07:56) increase heart rate justin Allergy (Severe, Uncoded 08/05/18 07:56) black mouth Past Medical History - General Information source: Patient - Social History Smoking Status: Never Smoker Cigarette use (# per day): No Frequency of alcohol use: None Drug Abuse: None Lives with: Family Family History: Reviewed & Not Pertinent, CAD - Past Medical History Cardiac Medical History: Reports: Hx Hypertension Pulmonary Medical History: Reports: Hx Asthma - on inhalers, Hx Bronchitis, Hx Pneumonia Musculoskeletal Medical History: Reports Hx Arthritis - BACK,HANDS,FEET, NEUROPATHY, ANKYLOSIS SPONDILYTIS Past Surgical History: Reports: Hx Section, Hx Gynecologic Surgery - endometreosis, Hx Tubal Ligation - Immunizations Immunizations up to date: No Hx Diphtheria, Pertussis, Tetanus Vaccination: Yes Hx Pneumococcal Vaccination: 05/16/14 <PRITESH KRUGER - Last Filed: 08/05/18 12:37> Review of Systems - Review of Systems Constitutional: No symptoms reported EENT: No symptoms reported Cardiovascular: See HPI, Heart racing Respiratory: No symptoms reported Gastrointestinal: No symptoms reported Genitourinary: No symptoms reported Female Genitourinary: No symptoms reported Musculoskeletal: No symptoms reported Skin: No symptoms reported Hematologic/Lymphatic: No symptoms reported Neurological/Psychological: No symptoms reported -: Yes All other systems reviewed and negative <PRITESH KRUGER - Last Filed: 08/05/18 12:37> Physical Exam <PRITESH KRUGER - Last Filed: 08/05/18 12:37> <SUDHA JACKSON - Last Filed: 08/05/18 14:29> - Vital signs Vitals: Temp Pulse Resp BP Pulse Ox 97.6 F 127 H 20 117/91 H 98 08/05/18 08:14 08/05/18 08:14 08/05/18 08:14 08/05/18 08:14 08/05/18 08:14 - Notes Notes: Physical Exam: General: Alert, appears well. HEENT: Normocephalic. Atraumatic. PERRL. Extraocular movements intact. Oropharynx clear. Neck: Supple. Non-tender. Respiratory: No respiratory distress. Clear and equal breath sounds bilaterally. Cardiovascular: Bradycardic regular rhythm. Abdominal: Normal Inspection. Non-tender. No distension. Normal Bowel Sounds. Back: Non-tender. No deformity or step off. Extremities: Moves all four extremities. Upper extremities: Normal inspection. Normal ROM. Lower extremities: Normal inspection. No edema. Normal ROM. Neurological: Normal cognition. AAOx4. Normal speech. Psychological: Normal affect. Normal Mood. Skin: Warm. Dry. Normal color. (PRITESH KRUGER) Course - Laboratory Result Diagrams: 08/05/18 09:16 08/05/18 09:16 <PRITESH KRUGER - Last Filed: 08/05/18 12:37> - Laboratory Result Diagrams: 08/05/18 09:16 08/05/18 09:16 - EKG Interpretation by Fl EKG shows normal: [place], Intervals, QRS Complexes. abnormal: ST-T Waves - Use borderline ST depression Rate: Tachycardia - 123 Rhythm: Other - Junctional tachycardia <SUDHA JACKSON - Last Filed: 08/05/18 14:29> - Re-evaluation Re-evalutation: 08/05/18 12:03 Patient's heart rate has been in the 40s for the last 2-1/2 hours. She feels fine and would like to go home. Her lab work is unremarkable including her cardiac enzymes. (SUDHA JACKSON) - Vital Signs Vital signs: Temp Pulse Resp BP Pulse Ox 97.6 F 127 H 21 H 100/69 100 08/05/18 08:14 08/05/18 08:14 08/05/18 12:01 08/05/18 12:01 08/05/18 12:01 - Laboratory Laboratory results interpreted by me: 08/05/18 08/05/18 09:16 09:16 RBC 5.49 H MCV 79 L MCH 26.6 L RDW 16.2 H Seg Neutrophils % 35.2 L Lymphocytes % 53.4 H Glucose 160 H Direct Bilirubin 0.6 H AST 108 H ALT 172 H Discharge <PRITESH KRUGER - Last Filed: 08/05/18 12:37> <SUDHA JACKSON - Last Filed: 08/05/18 14:29> - Discharge Clinical Impression: Tachycardia Condition: Stable Disposition: HOME, SELF-CARE Additional Instructions: Be sure to drink plenty of fluids today. Take an additional dose of your atenolol if your heart rate goes back up. RETURN TO THE EMERGENCY ROOM IF ANY NEW OR WORSENING SYMPTOMS. Referrals: THEODORE BECKMAN MD [Primary Care Provider] - Follow up as needed Scribe Attestation: 08/05/18 11:25 I personally performed the services described in the documentation, reviewed and edited the documentation which was dictated to the scribe in my presence, and it accurately records my words and actions. (SUDHA JACKSON) Scribe Documentation - Scribe Written by Cherry:: Cherry Jenkins, 08/05/2018 1248 acting as scribe for :: Noel <PRITESH KRUGER - Last Filed: 08/05/18 12:37>
[2018-08-05] MEDS ORDERED: ASPIRIN 81 MG TABLET, CHEWABLE PO ONE (09:49)
--- NOTE | 2018-08-05 10:23 | EKG REPORT ---
SEVERITY:- ABNORMAL ECG - JUNCTIONAL TACHYCARDIA BORDERLINE ST DEPRESSION, DIFFUSE LEADS : Confirmed by: Alda Ashley MD 05-Aug-2018 10:22:54
--- NOTE | 2018-08-05 10:49 | RADIOLOGY REPORT (SQ) ---
EXAM DESCRIPTION: CHEST SINGLE VIEW COMPLETED DATE/TIME: 08/05/2018 10:36 am REASON FOR STUDY: chest pressure COMPARISON: 01/19/2018. EXAM PARAMETERS: NUMBER OF VIEWS: One view. TECHNIQUE: Single frontal radiographic view of the chest acquired. RADIATION DOSE: NA LIMITATIONS: None. FINDINGS: LUNGS AND PLEURA: No opacities, masses or pneumothorax. No pleural effusion. MEDIASTINUM AND HILAR STRUCTURES: No masses. Contour normal. HEART AND VASCULAR STRUCTURES: Heart normal in size. Normal vasculature. BONES: No acute findings. HARDWARE: None in the chest. OTHER: No other significant finding. IMPRESSION: NO ACUTE RADIOGRAPHIC FINDING IN THE CHEST. TECHNICAL DOCUMENTATION: JOB ID: [id number] [employer]- All Rights Reserved Reading location - IP/workstation name: [email or web address]
[2018-08-05 10:58] LABS: ABSOLUTE LYMPHOCYTES (AUTO) 2.8 10^3/uL (0.5-4.7); ABSOLUTE MONOCYTES (AUTO) 0.5 10^3/uL (0.1-1.4); ABSOLUTE NEUT (AUTO) 1.9 10^3/uL (1.7-8.2); BASOPHILS % (AUTO) 0.7 % (0-2); EOSINOPHILS % (AUTO) 0.9 % (0-6); HEMATOCRIT 43.3 % (36.0-47.0); HEMOGLOBIN 14.6 g/dL (12.0-15.5); LYMPHOCYTES % (AUTO) 53.4 % (13-45); MEAN CORPUSCULAR HEMOGLOBIN 26.6 pg (27.0-33.4); MEAN CORPUSCULAR HGB CONC 33.7 g/dL (32.0-36.0); MEAN CORPUSCULAR VOLUME 79 fl (80-97); MONOCYTES % (AUTO) 9.8 % (3-13); PLATELET COUNT 313 10^3/uL (150-450); RED BLOOD COUNT 5.49 10^6/uL (3.72-5.28); RED CELL DISTRIBUTION WIDTH 16.2 % (11.5-14.0); SEGMENTED NEUTROPHILS % (AUTO) 35.2 % (42-78); TOTAL CELLS COUNTED % (AUTO) 100 %; WHITE BLOOD COUNT 5.3 10^3/uL (4.0-10.5)
[2018-08-05 11:19] LABS: ALANINE AMINOTRANSFERASE 172 U/L (9-52); ALBUMIN 3.9 g/dL (3.5-5.0); ALKALINE PHOSPHATASE 120 U/L (38-126); ANION GAP 6 (5-19); ASPARTATE AMINO TRANSFERASE 108 U/L (14-36); BILIRUBIN,DIRECT 0.6 mg/dL (0.0-0.4); BILIRUBIN,TOTAL 0.8 mg/dL (0.2-1.3); BLOOD UREA NITROGEN 9 mg/dL (7-20); CARBON DIOXIDE 30 mmol/L (22-30); CHLORIDE 101 mmol/L (98-107); CREATINE KINASE 85 U/L (30-135); GLUCOSE 160 mg/dL (75-110); POTASSIUM 4.1 mmol/L (3.6-5.0); SODIUM 137.4 mmol/L (137-145); TOTAL PROTEIN 7.5 g/dL (6.3-8.2)
[2018-08-05 11:31] LABS: CREATINE KINASE MB 1.11 ng/mL (<4.55)
[2018-08-05] MEDS ORDERED: NORMAL SALINE 1000 ML 1,000 ML IV ONE (11:32)
[2018-08-05 11:35] LABS: TROPONIN I < 0.012 ng/mL
[2018-08-05 12:35] VITALS: BP 100/69
== END 2018-08-05 12:34 | disposition home or self-care (01) ==
LOC: ER 07:56
DX: R00.0 Tachycardia, unspecified (principal); I10 Essential (primary) hypertension; Z88.0 Allergy status to penicillin; Z98.51 Tubal ligation status
CPT/HCPCS: 36415; 71045; 80053; 82550; 82553; 84484; 85025; 93005; 93010; 96360; 99285

== ENCOUNTER 2020-06-22 15:59 | Emergency (ER) | payer MEDICARE, MEDICAID ==
[2020-06-22] MEDS ORDERED: LIDOCAINE 2% VISCOUS SOLN 15 ML UDCUP PO ONE (16:15)
[2020-06-22] MEDS ORDERED: METOCLOPRAMIDE HCL ORAL SOLN 10 MG/10 ML UDCUP PO ONE (16:15)
[2020-06-22] MEDS ORDERED: MAG HYDROX/AL HYDROX/SIMETH SUSP 30 ML UDCUP PO ONE (16:15)
--- NOTE | 2020-06-22 16:19 | ER Document Report ---
ED Medical Screen (RME) - General Chief Complaint: Chest Pain Stated Complaint: ACID REFLUX Time Seen by Provider: 06/22/20 16:07 Primary Care Provider: THEODORE BECKMAN MD [Primary Care Provider] - Follow up as needed TRAVEL OUTSIDE OF THE [place] IN LAST 30 DAYS: No - HPI Notes: 06/22/20 16:16 59 yr old female type 2 diabetes, HTN, palpitations, neuropathies presents emergency room for complaints of substernal burning chest pain that radiates to her abdomen as well as to bilateral shoulders after eating spicy food 4 nights days ago. Has tried milk, Gas-X, Tums, carbonated water as well as sitting up in bed but nothing makes it better. Patient does not have a history of GERD. Reports she has had some erection and flatus but nothing substantial. States she is typically regular with her bowel movements but has been recently constipated did have a small BM today. Denies any rashes. Denies any fevers chills, shortness of breath, nausea vomiting or diarrhea. I have greeted and performed a rapid initial assessment of this patient. A comprehensive ED assessment and evaluation of the patient, analysis of test results and completion of the medical decision making process will be conducted by additional ED providers. PHYSICAL EXAMINATION: GENERAL: Well-appearing, well-nourished and in no acute distress. NECK: Normal range of motion CV: s1, s2 regular, non reproducible chest discomfort LUNGS: No respiratory distress - Related Data Allergies/Adverse Reactions: nitrofurantoin [From Macrobid] Allergy (Verified 06/22/20 16:16) increase heart rate nitrofurantoin macrocrystalline [From Macrobid] Allergy (Verified 06/22/20 16:16) increase heart rate Penicillins Allergy (Verified 06/22/20 16:16) rash theophylline [Theophylline] Allergy (Verified 06/22/20 16:16) increase heart rate justin Allergy (Severe, Uncoded 06/22/20 16:16) black mouth Past Medical History - Past Medical History Cardiac Medical History: Reports: Hx Hypertension Denies: Hx Coronary Artery Disease, Hx Heart Attack Pulmonary Medical History: Reports: Hx Asthma - on inhalers, Hx Bronchitis, Hx Pneumonia Denies: Hx COPD, Hx Tuberculosis Neurological Medical History: Denies: Hx Cerebrovascular Accident, Hx Seizures Renal/ Medical History: Denies: Hx Peritoneal Dialysis Musculoskeltal Medical History: Reports Hx Arthritis - BACK,HANDS,FEET, NEUROPATHY, ANKYLOSIS SPONDILYTIS Past Surgical History: Reports: Hx Section, Hx Gynecologic Surgery - endometreosis, Hx Tubal Ligation - Immunizations Immunizations up to date: No Hx Diphtheria, Pertussis, Tetanus Vaccination: Yes Physical Exam - Vital signs Vitals: Temp Pulse Resp BP Pulse Ox 98.1 F 61 20 146/88 H 100 06/22/20 16:05 06/22/20 16:05 06/22/20 16:05 06/22/20 16:05 06/22/20 16:05 Course - Vital Signs Vital signs: Temp Pulse Resp BP Pulse Ox 98.1 F 61 20 146/88 H 100 06/22/20 16:05 06/22/20 16:05 06/22/20 16:05 06/22/20 16:05 06/22/20 16:05 Doctor's Discharge - Discharge Referrals: THEODORE BECKMAN MD [Primary Care Provider] - Follow up as needed
[2020-06-22 17:07] LABS: ABSOLUTE EOSINOPHILS # (AUTO) 0.2 10^3/uL (0.0-0.6); ABSOLUTE LYMPHOCYTES (AUTO) 3.2 10^3/uL (0.5-4.7); ABSOLUTE MONOCYTES (AUTO) 0.5 10^3/uL (0.1-1.4); ABSOLUTE NEUT (AUTO) 2.6 10^3/uL (1.7-8.2); BASOPHILS % (AUTO) 0.6 % (0-2); EOSINOPHILS % (AUTO) 2.8 % (0-6); HEMATOCRIT 39.4 % (36.0-47.0); HEMOGLOBIN 13.1 g/dL (12.0-15.5); LYMPHOCYTES % (AUTO) 49.1 % (13-45); MEAN CORPUSCULAR HEMOGLOBIN 25.4 pg (27.0-33.4); MEAN CORPUSCULAR HGB CONC 33.2 g/dL (32.0-36.0); MEAN CORPUSCULAR VOLUME 76 fl (80-97); MONOCYTES % (AUTO) 8.1 % (3-13); PLATELET COUNT 396 10^3/uL (150-450); RED BLOOD COUNT 5.16 10^6/uL (3.72-5.28); RED CELL DISTRIBUTION WIDTH 15.2 % (11.5-14.0); SEGMENTED NEUTROPHILS % (AUTO) 39.4 % (42-78); TOTAL CELLS COUNTED % (AUTO) 100 %; WHITE BLOOD COUNT 6.6 10^3/uL (4.0-10.5)
[2020-06-22 17:22] LABS: ALBUMIN 3.9 g/dL (3.5-5.0); ALKALINE PHOSPHATASE 72 U/L (38-126); ANION GAP 6 (5-19); ASPARTATE AMINO TRANSFERASE 35 U/L (14-36); BILIRUBIN,TOTAL 0.3 mg/dL (0.2-1.3); BLOOD UREA NITROGEN 9 mg/dL (7-20); CALCIUM 9.6 mg/dL (8.4-10.2); CARBON DIOXIDE 29 mmol/L (22-30); CHLORIDE 101 mmol/L (98-107); GLUCOSE 126 mg/dL (75-110); POTASSIUM 4.3 mmol/L (3.6-5.0); TOTAL PROTEIN 6.4 g/dL (6.3-8.2)
[2020-06-22 17:41] LABS: INTERNATIONAL RATION (INR) 0.85; PARTIAL THROMBOPLASTIN TIME 27.7 SEC (23.5-35.8); PROTHROMBIN TIME 11.8 SEC (11.4-15.4)
--- NOTE | 2020-06-22 17:43 | RADIOLOGY REPORT (SQ) ---
EXAM DESCRIPTION: CHEST 2 VIEWS IMAGES COMPLETED DATE/TIME: 06/22/2020 5:05 pm REASON FOR STUDY: burning chest pain x 4 days COMPARISON: Chest x-ray 08/05/2018, 02/10/2017 EXAM PARAMETERS: NUMBER OF VIEWS: two views TECHNIQUE: Digital Frontal and Lateral radiographic views of the chest acquired. RADIATION DOSE: NA LIMITATIONS: none FINDINGS: LUNGS AND PLEURA: No consolidation, pneumothorax or pleural effusion. MEDIASTINUM AND HILAR STRUCTURES: No masses or contour abnormalities. HEART AND VASCULAR STRUCTURES: Heart normal size. No evidence for failure. BONES: Degenerative changes at the spine. HARDWARE: None in the chest. IMPRESSION: NO ACUTE RADIOGRAPHIC FINDING IN THE CHEST. TECHNICAL DOCUMENTATION: JOB ID: [id number] [employer]- All Rights Reserved Reading location - IP/workstation name: [email or web address]
--- NOTE | 2020-06-22 18:10 | ER Document Report ---
ED General - General Chief Complaint: Chest Pain Stated Complaint: ACID REFLUX Time Seen by Provider: 06/22/20 16:07 Primary Care Provider: THEODORE BECKMAN MD [Primary Care Provider] - Follow up as needed Notes: Patient is a 59-year-old -[place]gas[place] female with a history of diabetes and SVT on atenolol who presents to the emergency department the chief complaint of burning in the epigastric region and lower chest. She states on Wednesday her goddaughter made her some shrimp. She states that she cannot normally tolerate spicy foods and she thinks that her goddaughter added a lot of of red pepper/cayenne pepper. She states since she ate the dinner she has had an upset stomach with the burning sensation. She denies any reflux, vomiting, diarrhea. She does admit to some recent constipation. She states that she is normally fairly regular but over the past few days since Wednesday has not had as many no rmal bowel movements that she typically does. She states just before my evaluation of the room she went to the bathroom here in the ED and had a normal bowel movement. Denies any blood per rectum. Denies any fever chills or night sweats. No shortness of breath. No lower extremity pain or swelling. No cough or hemoptysis. No history of DVT or PE. TRAVEL OUTSIDE OF THE [place] IN LAST 30 DAYS: No - Related Data Allergies/Adverse Reactions: nitrofurantoin [From Macrobid] Allergy (Verified 06/22/20 16:16) increase heart rate nitrofurantoin macrocrystalline [From Macrobid] Allergy (Verified 06/22/20 16:16) increase heart rate Penicillins Allergy (Verified 06/22/20 16:16) rash theophylline [Theophylline] Allergy (Verified 06/22/20 16:16) increase heart rate justin Allergy (Severe, Uncoded 06/22/20 16:16) black mouth Past Medical History - Social History Smoking Status: Never Smoker Family History: Reviewed & Not Pertinent, CAD Patient has homicidal ideation: No - Past Medical History Cardiac Medical History: Reports: Hx Hypertension Denies: Hx Coronary Artery Disease, Hx Heart Attack Pulmonary Medical History: Reports: Hx Asthma - on inhalers, Hx Bronchitis, Hx Pneumonia Denies: Hx COPD, Hx Tuberculosis Neurological Medical History: Denies: Hx Cerebrovascular Accident, Hx Seizures Renal/ Medical History: Denies: Hx Peritoneal Dialysis Musculoskeletal Medical History: Reports Hx Arthritis - BACK,HANDS,FEET, NEUROPATHY, ANKYLOSIS SPONDILYTIS Past Surgical History: Reports: Hx Section, Hx Gynecologic Surgery - en dometreosis, Hx Tubal Ligation - Immunizations Immunizations up to date: No Hx Diphtheria, Pertussis, Tetanus Vaccination: Yes Hx Pneumococcal Vaccination: 05/16/14 Review of Systems - Review of Systems Notes: Per HPI Physical Exam - Vital signs Vitals: Temp Pulse Resp BP Pulse Ox 98.1 F 61 20 146/88 H 100 06/22/20 16:05 06/22/20 16:05 06/22/20 16:05 06/22/20 16:05 06/22/20 16:05 - General General appearance: Appears well, Alert In distress: None - HEENT Head: Normocephalic, Atraumatic Eyes: Normal Conjunctiva: Normal Pupils: PERRL Mouth/Lips: Normal Mucous membranes: Normal Pharynx: Normal Neck: Normal, Supple - Respiratory Respiratory status: No respiratory distress Chest status: Nontender Breath sounds: Normal Chest palpation: Normal - Cardiovascular Rhythm: Regular Heart sounds: Normal auscultation - Abdominal Inspection: Normal Distension: No distension Bowel sounds: Normal Tenderness: Nontender Organomegaly: No organomegaly - Back Back: No: CVA tenderness - Extremities General upper extremity: Normal inspection, Nontender, Normal color, Normal ROM, Normal temperature General lower extremity: Normal inspection, Nontender, Normal color, Normal ROM, Normal temperature, Normal weight bearing. No: Mau's sign - Neurological Neuro grossly intact: Yes Cognition: Normal Orientation: AAOx4 - Psychological Associated symptoms: Normal affect, Normal mood - Skin Skin Temperature: Warm Skin Moisture: Dry Skin Color: Normal Course - Re-evaluation Re-evalutation: 06/22/20 18:12 EK. Sinus rhythm at 58, slightly bradycardic. Normal intervals otherwise. Normal axis. No STEMI. No acute ST segment changes suggestive of STEMI or ischemia. Interpreted by ED attending. Improved from prior EKG dated 08/05/2018 06/22/20 19:54 Patient's been seen here multiple times for chest pain. She has no CAD or cardiac history. Negative chest pain work-ups in the past. She is here more or less for upper abdominal discomfort after eating some spicy foods. EKG was unremarkable for any acute ischemic process. Troponin was negative. X-ray negative. Ultrasound of the abdomen was negative for any acute process. Patient was given a GI cocktail. Reevaluation of her at this time shows that she is feeling much better. She does not take any medications daily for this. Will prescribe Pepcid for trial. She will follow-up with her regular doctor in the next 2 to 3 days for continued evaluation and management. Advised that she return here or any ER immediately with any new, persistent or worsening symptoms. She verbalized understood and agreed. - Vital Signs Vital signs: Temp Pulse Resp BP Pulse Ox 98.1 F 61 20 146/88 H 100 06/22/20 16:05 06/22/20 16:05 06/22/20 16:05 06/22/20 16:05 06/22/20 16:05 - Laboratory Result Diagrams: 06/22/20 16:25 06/22/20 16:25 Laboratory results interpreted by me: 06/22/20 06/22/20 16:25 16:25 MCV 76 L MCH 25.4 L RDW 15.2 H Lymph % (Auto) 49.1 H Seg Neutrophils % 39.4 L Sodium 136.4 L Glucose 126 H Discharge - Discharge Clinical Impression: Upper abdominal pain Gastritis Qualifiers: Gastritis type: unspecified gastritis Chronicity: acute Gastritis bleeding: presence of bleeding unspecified Qualified Code(s): K29.00 - Acute gastritis without bleeding Condition: Stable Disposition: HOME, SELF-CARE Instructions: Antacid Therapy ([facility]), Abdominal Pain ([facility]) Additional Instructions: Follow-up with your regular doctor in 2 to 3 days for reevaluation. Return here or any ER immediately with any new, persistent or worsening symptoms. Prescriptions: Famotidine [Pepcid 20 mg Tablet] 20 mg PO DAILY #15 tablet Referrals: THEODORE BECKMAN MD [Primary Care Provider] - Follow up as needed
--- NOTE | 2020-06-22 18:54 | RADIOLOGY REPORT (SQ) ---
EXAM DESCRIPTION: U/S ABDOMEN LTD W/DOPPLER IMAGES COMPLETED DATE/TIME: 06/22/2020 5:53 pm REASON FOR STUDY: epigastric abd pain COMPARISON: None. TECHNIQUE: Grayscale images acquired of the abdomen and recorded on PACS. Additional selected color Doppler and spectral images recorded. LIMITATIONS: Overlying bowel gas FINDINGS: PANCREAS: The pancreas is partially obscured by overlying bowel gas. The visualized pancr eas in the midline is unremarkable. LIVER: Measures 15.5 cm. Echotexture normal. LIVER VASCULATURE: Normal directional flow of the main portal vein. GALLBLADDER: No stones. Normal wall thickness. No pericholecystic fluid. ULTRASOUND-DETECTED MANLEY'S SIGN: Negative. INTRAHEPATIC DUCTS AND COMMON DUCT: CBD and intrahepatic ducts normal caliber. No filling defects. INFERIOR VENA CAVA: Patent. AORTA: No aneurysm at the visualized segments. RIGHT KIDNEY: Measures 10 cm in length. Normal echogenicity. No hydronephrosis. No calcifications. PERITONEAL AND RIGHT PLEURAL SPACE: No ascites or effusions. IMPRESSION: No cholelithiasis or biliary ductal dilation. TECHNICAL DOCUMENTATION: JOB ID: [id number] [place]-[id number] 2010 [employer]- All Rights Reserved Reading location - IP/workstation name: [email or web address]
--- NOTE | 2020-06-22 19:43 | EKG REPORT ---
SEVERITY:- ABNORMAL ECG - SINUS RHYTHM AINSLEY, CONSIDER BIATRIAL ABNORMALITIES : Confirmed by: Po Mark MD 22-Jun-2020 19:43:03
[2020-06-22 20:03] VITALS: BP 137/78
== END 2020-06-22 20:04 | disposition home or self-care (01) ==
LOC: ER 15:59
DX: K29.00 Acute gastritis without bleeding (principal); R07.9 Chest pain, unspecified; R10.10 Upper abdominal pain, unspecified; I10 Essential (primary) hypertension; Z98.51 Tubal ligation status
CPT/HCPCS: 93005; 99285; 36415; 83690; 85025; 85610; 85730; 80053; 84484; 71046; 76705; 93976; 93010; J3490; A9270 ×2

== ENCOUNTER 2020-09-14 16:55 | Emergency (ER) | payer MEDICARE, MEDICAID ==
[2020-09-14 17:17] VITALS: BP 147/83
--- NOTE | 2020-09-14 17:20 | ER Document Report ---
HPI - HPI Time Seen by Provider: 09/14/20 17:11 Pain Level: 3 Context: CHIEF COMPLAINT: Shingles HPI: 60-year-old female presenting for painful burning rash that began last night and this morning to the right chest wall. States it is on the back as well as under the breast. Patient states she saw her primary care provider last week and was going to go get the shingles vaccination and was told to wait until she was 62. No fever ROS: See HPI - all other systems were reviewed and are otherwise negative Constitutional: no fever Integumentary: + rash Allergy: no hives Musculoskeletal: no extremity pain or swelling MEDICATIONS: I agree with the patient medications as charted by the RN. ALLERGIES: I agree with the allergies as charted by the RN. PAST MEDICAL HISTORY/PAST SURGICAL HISTORY: Reviewed and agree as charted by RN. SOCIAL HISTORY: Reviewed and agree as charted by RN. FAMILY HISTORY: No significant familial comorbid conditions directly related to patient complaint EXAM: With female life insurance underwriter present Reviewed vital signs as charted by RN. CONSTITUTIONAL: Alert and oriented and responds appropriately to questions. Well-appearing; well-nourished HEAD: Normocephalic; atraumatic EYES: Conjunctivae clear, sclerae non-icteric ENT: normal nose; no rhinorrhea; moist mucous membranes NECK: Supple without meningismus; non-tender; no cervical lymphadenopathy, no masses CARD: RRR; no murmurs, no clicks, no rubs, no gallops; symmetric distal pulses RESP: Normal chest excursion without splinting or tachypnea; breath sounds clear and equal bilaterally; no wheezes, no rhonchi, no rales, pulse oximetry 98% on room air not hypoxic ABD/GI: Normal bowel sounds; non-distended; soft, non-tender, no rebound, no guarding; no palpable organomegaly or masses. BACK: The back appears normal and is non-tender to palpation EXT: Normal ROM in all joints; no cyanosis, no effusions, no edema SKIN: Normal color for age and race; warm; dry; good turgor; raised grouped vesicles on the right thoracic back, also several raised grouped vesicles on the right anterior chest wall under the breast NEURO: Moves all extremities equally; Motor and sensory function intact PSYCH: The patient's mood and manner are appropriate. Grooming and personal hygiene are appropriate. MDM: 60-year-old female with shingles will place her on steroids antivirals pain medication Lidoderm follow-up PCP - CONSTITUTIONAL Constitutional: DENIES: Fever, Chills - REPRODUCTIVE Reproductive: DENIES: : Past Medical History - Social History Smoking Status: Never Smoker Chew tobacco use (# tins/day): No Frequency of alcohol use: None Drug Abuse: None Family History: Reviewed & Not Pertinent, CAD - Past Medical History Cardiac Medical History: Reports: Hx Hypertension Denies: Hx Coronary Artery Disease, Hx Heart Attack Pulmonary Medical History: Reports: Hx Asthma - on inhalers, Hx Bronchitis, Hx Pneumonia Denies: Hx COPD, Hx Tuberculosis Neurological Medical History: Denies: Hx Cerebrovascular Accident, Hx Seizures Renal/ Medical History: Denies: Hx Peritoneal Dialysis Musculoskeletal Medical History: Reports Hx Arthritis - BACK,HANDS,FEET, NEUROPATHY, ANKYLOSIS SPONDILYTIS Past Surgical History: Reports: Hx Section, Hx Gynecologic Surgery - endometreosis, Hx Tubal Ligation - Immunizations Immunizations up to date: No Hx Diphtheria, Pertussis, Tetanus Vaccination: Yes Hx Pneumococcal Vaccination: 05/16/14 Vertical Provider Document - INFECTION CONTROL TRAVEL OUTSIDE OF THE [place] IN LAST 30 DAYS: No Course - Vital Signs Vital signs: Temp Pulse Resp BP Pulse Ox 97.9 F 61 18 147/83 H 100 09/14/20 17:08 09/14/20 17:08 09/14/20 17:08 09/14/20 17:08 09/14/20 17:08 Discharge - Discharge Clinical Impression: Shingles Qualifiers: Herpes zoster complications: without complications Qualified Code(s): B02.9 - Zoster without complications Condition: Stable Disposition: HOME, SELF-CARE Instructions: Shingles ([facility]) Additional Instructions: Take the Percocet for pain, do not drive if taking Percocet for pain. Apply the lidocaine patches to help with discomfort as directed. Discuss application method with the pharmacist when you worm picker the patches. Follow-up with your primary care provider in 2-3 days for recheck and reevaluation call to obtain appointment. Stay away from contact with elderly, very young, women, or those people who are immunocompromised such as those with HIV or cancer who are undergoing treatment Prescriptions: Prednisone [Deltasone 20 mg Tablet] 2 tab PO DAILY 5 Days #10 tablet Lidocaine [Lidoderm 5% (700 mg) Transdermal Patch] 1 patch TP DAILY #30 adh..patch Oxycodone HCl/Acetaminophen [Percocet 5-325 mg Tablet] 1 tab PO Q4H PRN #15 tab PRN Reason: Valacyclovir HCl [Valacyclovir] 1,000 mg PO TID #21 tablet Referrals: THEODORE BECKMAN MD [Primary Care Provider] - Follow up as needed
== END 2020-09-14 17:27 | disposition home or self-care (01) ==
LOC: ER 16:55
DX: B02.9 Zoster without complications (principal); I10 Essential (primary) hypertension; J45.909 Unspecified asthma, uncomplicated
CPT/HCPCS: 99283